=== PATIENT | female | born 2000 | race Caucasian/White ===

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

== ENCOUNTER → 2018-01-13 11:12 | Outpatient (CLI) | payer OTHER, SELFPAY ==
[2018-01-13 13:53] LABS: HCG Qualitative, Serum Positive (Negative)
[2018-01-13 14:29] LABS: HCG,Quantitative 45971 mIU/mL
== END ==
PROVIDERS: PCP Nurse Practitioner Family; Visit Provider Nurse Practitioner Family
DX: Z32.00 Encounter for pregnancy test, result unknown (principal)
CPT/HCPCS: 36415; 84702; 84703

== ENCOUNTER 2021-06-06 12:16 | Emergency (ER) | payer OTHER, SELFPAY ==
--- NOTE | 2021-06-06 15:37 | HMH.EDUTC ---
[facility] [place] Clinical Impression: UTI (urinary tract infection) Qualifiers: Urinary tract infection type: site unspecified Hematuria presence: with hematuria Qualified Code(s): N39.0 - Urinary tract infection, site not specified Disposition: Home, Self-Care Condition on Discharge: Good Instructions: Urinary Tract Infection Additional Instructions: Drink plenty of fluids. Take tylenol or ibuprofen for pain or fever. Take the medications as directed. Follow up with your regular doctor. GO TO THE ER FOR ANY WORSENING SYMPTOMS The pyridium will make your urine turn orange, this is an expected side effect. It will stain your clothes if it comes into contact with them. Prescriptions: Ondansetron [Zofran 4mg ODT] 4 mg PO Q8HP PRN #20 tab PRN Reason: Nausea Transmission Status: Received by [email or web address] Sulfamethoxazole/Trimethoprim [Bactrim DS tablet] 1 each PO BID 7 Days #14 tab Transmission Status: Received by [email or web address] Phenazopyridine HCl [Pyridium 200mg Tablet] 200 pow PO TID #6 tab Transmission Status: Received by [email or web address] Referrals: Provider,ReferralMD [Primary Care Provider] - Time of Disposition: 16:26 Medical Decision Making - Medical Records Medical records reviewed: No: I reviewed the patient's medical records. - Jamey Inquiry Pt receiving controlled substance: No Vital Signs: 06/06/21 15:46 06/06/21 16:41 Temperature 98.3 F 98.3 F Temperature Source Oral Pulse Rate 72 Pulse Rate [Left] 72 Respiratory Rate 18 18 Blood Pressure 107/74 L Blood Pressure [Right Arm] 107/74 L Blood Pressure Mean [Right Arm] 85 02 Sat by Pulse Oximetry 97 - Lab Data Lab results reviewed: Yes: I reviewed the patient's lab results. Lab Results 06/06/21 15:55: Urine Color Yellow, Urine Appearance Cloudy, Urine pH 7.0, Ur Specific [place] 1.020, Urine Protein Negative, Urine Glucose (UA) Negative, Urine Ketones Negative, Urine Blood 2+, Urine Nitrate Positive A, Urine Bilirubin Negative, Urine Urobilinogen 0.2, Ur Leukocyte Esterase 1+ A Orders (Tests/Meds): ORDERS Category Date Time Status Urine Culture Stat Micro 06/06/21 15:55 Results [facility] [place] HPI - General Stated complaint: possible uti Time Seen by Provider: 06/06/21 15:37 - History of Present Illness Provider Complaint: She states that for the past 2 days she has had low back pain and dysuria. - Related Data Previous Rx's Medication Instructions Recorded Methocarbamol [Robaxin 500mg Tab] 500 mg PO BIDP PRN #30 tab 01/06/19 methylPREDNISolone [Medrol] 4 mg PO DIRECTED 6 Days #21 01/06/19 tab.ds.pk Ondansetron [Zofran 4mg ODT] 4 mg PO Q8HP PRN #20 tab 06/06/21 Phenazopyridine HCl [Pyridium 200 pow PO TID #6 tab 06/06/21 200mg Tablet] Sulfamethoxazole/Trimethoprim 1 each PO BID 7 Days #14 tab 06/06/21 [Bactrim DS tablet] Allergies Allergy/AdvReac Type Severity Reaction Status Date / Time No Known Allergies Allergy Verified 06/18/17 20:02 [facility] History - Hepatitis A Screen Attestation statement:: This patient has been screened for Hepatitis A risk factors. I have reviewed the patient's past medical history: Yes Laterality Cases: Bilateral: Tonsillectomy - Social History Alcohol Intake: never Occupational Status: other ROS Obtained: Yes All systems reviewed & no additional complaints - Constitutional Constitutional: Reports as per HPI - Eyes Eyes: Denies eye discharge - ENT Ears, Nose, Mouth, and Throat: Denies dizziness, Denies otalgia, Denies sore throat - Cardiovascular Cardiovascular: Denies chest pain - Respiratory Respiratory: Denies chest congestion, Denies cough - Genitourinary Female Genitourinary: Reports as per HPI - Musculoskeletal Musculoskeletal: Reports back pain - Integumentary/Breasts Skin/Breast: Denies rash Physical Exam - General General appearance: alert, in no apparent distres
[2021-06-06 15:46] VITALS: BP 107/74; PULSE 72; RESP 18; TEMP 36.8; O2SAT 97; BMI 26.7
[2021-06-06 16:08] LABS: Apearance,Urine Cloudy (Clear); Color,Urine Yellow (Yellow)
[2021-06-06 16:09] LABS: Bilirubin,Urine Negative (Negative); Blood, Urine 2+ (Negative); Glucose,Urine (UA) Negative (Negative); Ketones,Urine Negative (Negative); Protein,Urine Negative (Negative); UTC Leukocyte Esterase,Urine 1+ (Negative); UTC Nitrate,Urine Positive (Negative); Urobilinogen,Urine 0.2 EU/dl (0.2)
[2021-06-06 16:41] VITALS: BP 107/74; PULSE 72; RESP 18; TEMP 36.8
== END 2021-06-06 16:47 | disposition home or self-care (01) ==
PROVIDERS: Emergency Provider Nurse Practitioner Family
DX: N39.0 Urinary tract infection, site not specified (principal)
CPT/HCPCS: 81003; 87086; 87088; 87186; 99202; G0463

== ENCOUNTER → 2022-09-25 16:12 | Outpatient (CLI) | payer OTHER, SELFPAY ==
[2022-09-25 16:45] LABS: Basophils % 0.2 % (0.1-2.0); Eosinophils # 0.1 K/mm3 (0.0-0.4); Eosinophils % 0.4 % (0.1-12.0); Hematocrit 37.3 % (37.0-47.0); Hemoglobin 12.6 g/dL (12.2-16.2); Lymphocytes # 1.8 K/mm3 (0.7-4.5); Lymphocytes % 14.1 % (10-50); Mean Corpuscular HGB Conc 33.9 g/dL (31.8-35.4); Mean Corpuscular Hemoglobin 29.8 pg (27.0-31.2); Mean Corpuscular Volume 87.8 fl (81-99); Mean Platelet Volume 9.1 fl (7.4-10.4); Monocytes # 0.4 K/mm3 (0.1-1.0); Monocytes % 3.1 % (1.7-9.3); Neutrophils # 10.8 K/mm3 (1.8-7.8); Neutrophils % 82.3 % (37.0-80.0); Platelet Count 228 K/mm3 (142-424); Red Blood Count 4.25 M/mm3 (4.20-5.40); White Blood Count 13.1 K/mm3 (4.8-10.8)
[2022-09-27 08:19] LABS: Rubella Antibodies, IgG 6.61 index (Immune >0.99)
[2022-09-27 12:30] LABS: HIV Screen 4th Generation wRfx Non Reactive (Non Reactive); Rapid Plasma Reagin Ab Titer Non Reactive (NonRea<1:1)
[2022-10-05 20:40] LABS: Hepatitis B Surface Antigen Negative
[2022-10-05 20:41] LABS: Hepatitis C Antibody Non Reactive
== END ==
PROVIDERS: Visit Provider Obstetrics & Gynecology
DX: Z34.90 Encounter for supervision of normal pregnancy, unspecified, unspecified trimester (principal)
CPT/HCPCS: 36415; 85025; 86593; 86703; 86762; 86850; 87086; 87340; 87380; G0432

== ENCOUNTER → 2022-12-18 13:09 | Outpatient (CLI) | payer OTHER, SELFPAY ==
--- NOTE | 2022-12-18 13:12 | US_ITS ---
PROCEDURE: US OB /MATERNAL DETAIL CLINICAL INDICATION: 20 week anatomy scan COMPARISON: No exams were available for comparison FINDINGS: Transabdominal sonographic images of the uterus were obtained. From her last menstrual period she is 20 weeks 4 days Single viable intrauterine gestation. Breech position. Placenta: Anteriorplacenta grade 1. There are several placental lakes. There is average amount fluid. The cervix appears satisfactory. Closed and measuring 3.5 cm in length. Complete survey performed and was unremarkable on the submitted images as in PACS. No discrete anomalies identified on survey imaging by technologist. Active fetus. Three-vessel cord with satisfactory umbilical cord insertion. 4- chamber heart noted. LVOT, RVOT, aortic arch appear normal. Survey of brain & ventricles Unremarkable.Cerebellum, thalamus, choroid plexus, cisterna magna appear normal. Face and neck survey unremarkable. Lips, nose, profile, nasion appear normal. Diaphragm and chest views unremarkable. Abdomen: Both kidneys noted and unremarkable. Stomach, bladder noted and satisfactory. Spine: Survey of the spine satisfactory with no anomalies identified nor imaged. Upper, thoracic and lower spine appear normal. Both arms and legs noted. Amniotic Fluid: Adequate. Measurements: Average ultrasound age 19weeks 2days. Estimated due date by ultrasound age 1205/12/2023. Estimated weight 297g BPD = 18weeks 5days OFD = 20weeks 1day HC = 18weeks 6days AC = 19weeks 6days FL = 19weeks 4days Growth Percentile= 6 Heart Rate = 144bpm Cerebellum = 19weeks 4days Humerus = 19weeks 4days HC/AC is 1.1 CI is 0.71 FL/BPD is 0.74 FL/AC is 0.21 IMPRESSION: 1. Viable fetus in the breech presentation with an anterior placenta grade 1. 2. The anatomical scan appears normal. 3. The growth is 6 percentile and the baby is globally 9 days behind on dates. Dictated by: Christiano Gómez MD 12/19/2022 08:32 Chrsitiano Gómez MD in [place] 12/19/2022 08:32
== END ==
PROVIDERS: PCP Obstetrics & Gynecology; Visit Provider Obstetrics & Gynecology
DX: Z34.92 Encounter for supervision of normal pregnancy, unspecified, second trimester (principal); Z3A.20 20 weeks gestation of pregnancy
CPT/HCPCS: 76811

== ENCOUNTER → 2023-02-05 11:35 | Outpatient (CLI) | payer OTHER, SELFPAY ==
[2023-02-05 12:23] LABS: Glucose,Fasting 90 mg/dl (74-100)
[2023-02-05 12:26] LABS: Eosinophils # 0.1 K/mm3 (0.0-0.4); Eosinophils % 0.6 % (0.1-12.0); Hematocrit 34.7 % (37.0-47.0); Hemoglobin 11.3 g/dL (12.2-16.2); Lymphocytes # 1.6 K/mm3 (0.7-4.5); Lymphocytes % 15.1 % (10-50); Mean Corpuscular HGB Conc 32.7 g/dL (31.8-35.4); Mean Corpuscular Hemoglobin 29.1 pg (27.0-31.2); Mean Corpuscular Volume 88.8 fl (81-99); Mean Platelet Volume 9.7 fl (7.4-10.4); Monocytes # 0.4 K/mm3 (0.1-1.0); Monocytes % 3.6 % (1.7-9.3); Neutrophils # 8.6 K/mm3 (1.8-7.8); Neutrophils % 80.7 % (37.0-80.0); Platelet Count 172 K/mm3 (142-424); Red Blood Count 3.91 M/mm3 (4.20-5.40); White Blood Count 10.6 K/mm3 (4.8-10.8)
[2023-02-05 14:08] LABS: Glucose 1 Hour 134 mg/dL (74-100)
== END ==
PROVIDERS: PCP Obstetrics & Gynecology; Visit Provider Obstetrics & Gynecology
DX: Z34.92 Encounter for supervision of normal pregnancy, unspecified, second trimester (principal); Z3A.27 27 weeks gestation of pregnancy
CPT/HCPCS: 36415; 82951; 85025

== ENCOUNTER → 2023-04-09 23:15 | Outpatient (CLI) | payer OTHER, SELFPAY | PROVIDERS: PCP Obstetrics & Gynecology; Visit Provider Obstetrics & Gynecology | DX: Z34.93 Encounter for supervision of normal pregnancy, unspecified, third trimester (principal); Z3A.36 36 weeks gestation of pregnancy | CPT/HCPCS: 86403 ==

== ENCOUNTER 2023-04-28 06:45 | Inpatient (IN) | payer OTHER, SELFPAY ==
[2023-04-28 07:24] VITALS: BMI 29.9
[2023-04-28 08:18] LABS: Basophils % 0.2 % (0.1-2.0); Eosinophils # 0.1 K/mm3 (0.0-0.4); Eosinophils % 1.3 % (0.1-12.0); Hematocrit 30.8 % (37.0-47.0); Hemoglobin 10.7 g/dL (12.2-16.2); Lymphocytes # 1.7 K/mm3 (0.7-4.5); Lymphocytes % 22.7 % (10-50); Mean Corpuscular HGB Conc 34.7 g/dL (31.8-35.4); Mean Corpuscular Hemoglobin 30.7 pg (27.0-31.2); Mean Corpuscular Volume 88.4 fl (81-99); Mean Platelet Volume 10.4 fl (7.4-10.4); Monocytes # 0.5 K/mm3 (0.1-1.0); Neutrophils # 5.3 K/mm3 (1.8-7.8); Neutrophils % 69.8 % (37.0-80.0); Platelet Count 171 K/mm3 (142-424); Red Blood Count 3.49 M/mm3 (4.20-5.40); Red Cell Distribution Width 14.2 % (11.5-17.5); White Blood Count 7.6 K/mm3 (4.8-10.8)
[2023-04-28 09:03] VITALS: BP 122/73; PULSE 96; RESP 18; TEMP 36.6; O2SAT 100; BMI 29.9
--- NOTE | 2023-04-28 10:14 | EXP.OB.APHP ---
OB - H&P: HPI Antepartum History of Present Illness Chief complaint: Elective induction of labor History of present illness: Ms Janie Georges is a 22 yo at 39w0d who presents to [facility] L&D for scheduled elective induction of labor. She admits to contractions and pelvic pressure. Baby is active. She has had good care. History of Present Criteria for establishing EDC:: based on 1st trimester US only care: good care Ultrasounds: normal mid trimester US Obstetrical complications: none Medical complications: none Labs Blood type: B (+) positive Rubella: immune RPR/VDRL: nonreactive GBS status: negative HBsAG: negative [facility] Disclaimer: The information contained in this section may have been updated after the patient was seen, as this information can be updated by other users. Medical History (Updated 04/28/23 @ 10:19 by Argelia Hollins DO) 39 weeks gestation of Asymmetric intrauterine growth restriction (IUGR) Encounter for elective induction of labor Nausea and vomiting during Request for sterilization Surgical History History of tonsillectomy Family History Other No significant family history Social History Smoking Status: Never smoker alcohol intake: never current occupational status: employed Travel in the last 8 weeks: None Review of Systems Review of Systems Review of systems:: pertinent systems reviewed and negative unless documented below *Genitourinary Comments: + contractions and pelvic pressure Meds Home Medications and Allergies Home Medications Medication Instructions Recorded Confirmed Type aspirin 81 mg chewable tablet 81 mg PO DAILY 04/28/23 04/28/23 History [id number]-[id number]-[id number]-[id number] 1 mg 1 tab PO DAILY 04/28/23 04/28/23 History tablet New Prescriptions to Start Prescriptions: Allergies Allergy/AdvReac Type Severity Reaction Status Date / Time No Known Allergies Allergy Verified 04/23/23 12:57 OB - H&P: Exam Physical Exam Vital signs: Temp Pulse Resp BP Pulse Ox O2 Del Method 97.9 F 96 H 18 122/73 100 Room Air 04/28/23 09:03 04/28/23 09:03 04/28/23 09:03 04/28/23 09:03 04/28/23 09:03 04/28/23 09:03 Constitutional no acute distress and cooperative Routine HEENT Exam Head: Present normocephalic and atraumatic Eye: Absent conjunctivae pink ENT: Present mucous membranes moist Routine Neck Exam Present full ROM Routine Respiratory Exam Present CTA bilaterally and normal respiratory effort Routine Cardiovascular Exam Present RRR Routine Abdominal Exam Present soft (Gravid); Absent tenderness Routine Rectal Exam Patient deferred: visual exam Routine Exam External: Present normal urethra appearance; Absent erythema, tenderness, lesions, lacerations, vulvar erythema or vulvar tenderness Routine Extremities Exam Present edema (+1 bilateral lower extremity edema) and full ROM; Absent calf tenderness Routine Neurological Exam Present alert, oriented X3 and moving all extremities Routine Psychiatric Exam Present normal affect and cooperative Detailed Labor and Delivery Exam Dilation (cm): 3 Effacement (%): 60 Cervix position: mid station: -2 Consistency: soft Membranes: artificially ruptured Amniotic fluid: clear Baseline heart rate: 150 monitor accelerations: Present monitor decelerations: None assisted variability: Moderate (11-25) Contraction frequency (min): 4 OB - Results Labs Labs: Short CBC 04/28/23 Range/Units 07:53 WBC 7.6 (4.8-10.8) K/mm3 Hgb 10.7 L (12.2-16.2) g/dL Hct 30.8 L (37.0-47.0) % Plt Count 171 (142-424) K/mm3 OB - A/P Antepartum (1) 39 weeks gestation of : Status: Acute (2) Encounter for elective inductio
--- NOTE | 2023-04-28 12:42 | P.PNANES_ITS ---
[facility] Disclaimer: The information contained in this section may have been updated after the patient was seen, as this information can be updated by other users. Medical History (Updated 04/28/23 @ 10:19 by Argelia Hollins DO) 39 weeks gestation of Asymmetric intrauterine growth restriction (IUGR) Encounter for elective induction of labor Nausea and vomiting during Request for sterilization Surgical History History of tonsillectomy Family History Other No significant family history Social History Smoking Status: Never smoker alcohol intake: never substance use type: denies use current occupational status: employed Travel in the last 8 weeks: None [facility] Anesthesia Checklist Patient Identification Patient Identification: Arm Band, Family and Verbal (Name & ) Structural Data Admitted From: Inpatient (OB 277) Planned Operative Procedure/s: Labor epidural Consent for Planned Operative Procedure(s) Verified: Yes Verified Documents: Surgical Consent and History and Physical NPO Status Verified Time NPO: 06:00 Chart Verification Results Verified: CBC Additional verifications Patient : Yes (39 0/7 week IUP for induction of labor) Anesthesia Reactions: No Cardiovascular Assessment Heart Sounds: S1 & S2 Pulse Rhythm: Irregular Peripheral Edema: Yes (2+ AYAAN LE) Airway Assessment Mallampati Score:: Class II C-Spine Mobility Assessed: Yes (FROM) TMJ Mobility Assessed: Yes Dentition: Good Dentition (Nothing loose per pt.) Neurological Assessment Level of Consciousness: Awake, Alert, Appropriate, Follows Commands and Restless Hx Seizures: No Numbness or tingling in extremities: No Anesthesia Plan Anesthesia Risk discussed: Yes Anesthesia Plan: Verified ASA Class: II Anesthesia Type: Epidural
[2023-04-28 16:48] LABS: Appearance,Urine CLEAR (Clear); Blood, Urine Negative (Negative); Color,Urine YELLOW (Yellow); Glucose,Urine (UA) TRACE (Negative); Ketones,Urine 1+ (Negative); Leukocyte Esterase,Urine TRACE (Negative); Microscopic, Urine URINE MICROSCOPIC (MICROSCOPIC); Nitrate,Urine Negative (Negative); Protein,Urine TRACE (Negative); Specific Gravity, Urine >= 1.030 (1.005-1.030)
[2023-04-28 16:50] LABS: Bilirubin,Urine 1+ (Negative)
[2023-04-28 17:00] LABS: Benzodiazepines Screen,Urine Negative ng/ml (<200)
[2023-04-28 17:01] LABS: Amphetamine/Metha Screen,Urine Negative ng/ml (<1000)
[2023-04-28 17:02] LABS: Barbiturates Screen,Urine Negative ng/ml (<200); Cannabinoid Screen,Urine Negative ng/ml (<50)
[2023-04-28 17:03] LABS: Cocaine Screen,Urine Negative ng/ml (<300); Methadone Screen,Urine Negative ng/ml (<300)
[2023-04-28 17:04] LABS: Opiate Screen,Urine Negative ng/ml (<300)
[2023-04-28 17:05] LABS: Phencyclidine Screen,Urine Negative ng/ml (<25)
[2023-04-28 17:31] LABS: WBC,Urine Occasional #/hpf (0-3)
--- NOTE | 2023-04-28 18:23 | EXP.DN ---
Delivery Note Delivery Date:: 04/28/23 Delivery Time:: 18:13 Anesthesia Type: Epidural Was labor medically induced?: No Induction method: none Gestational age (weeks): 39 Infant delivered prior to 39 weeks?: No Gender: Female at 1 minute: 9 at 5 minutes: 9 Delivery Procedure:: Mom complete with epidural. Pushed for approximately one contraction. Head delivered spontaneously over intact perineum in BAILEE position. No nuchal cord. Anterior shoulder delivered with gentle downward pressure. Posterior shoulder and remainder of body delivered spontaneously. Baby placed on maternal abdomen, mouth and nares bulb suctioned, warmed/dried and stimulated. Delayed cord clamping was performed for 60 seconds. Cord was clamped and cut by father of baby. Cord blood was obtained. Placenta delivered spontaneously and intact. No lacerations. Mom and baby were skin to skin and doing well after delivery. Live female baby (baby's name is Maggie) APGARs 9 (1 min), 9 (5 min) EBL 25 mL Placental Delivery Description: Spontaneous
[2023-04-29 06:20] LABS: Basophils % 0.1 % (0.1-2.0); Eosinophils # 0.1 K/mm3 (0.0-0.4); Eosinophils % 0.9 % (0.1-12.0); Hematocrit 28.3 % (37.0-47.0); Hemoglobin 9.9 g/dL (12.2-16.2); Lymphocytes # 1.7 K/mm3 (0.7-4.5); Lymphocytes % 21.7 % (10-50); Mean Corpuscular HGB Conc 35.1 g/dL (31.8-35.4); Mean Corpuscular Hemoglobin 30.6 pg (27.0-31.2); Mean Corpuscular Volume 87.2 fl (81-99); Monocytes # 0.4 K/mm3 (0.1-1.0); Monocytes % 5.7 % (1.7-9.3); Neutrophils # 5.5 K/mm3 (1.8-7.8); Neutrophils % 71.5 % (37.0-80.0); Platelet Count 144 K/mm3 (142-424); Red Blood Count 3.24 M/mm3 (4.20-5.40); Red Cell Distribution Width 14.1 % (11.5-17.5); White Blood Count 7.7 K/mm3 (4.8-10.8)
--- NOTE | 2023-04-29 14:06 | EXP.DC.SUM ---
General Admission date:: 04/28/23 Discharge date: 04/29/23 HPI HPI HPI: PPD # 1 s/p She is doing well. Formula feeding. Lochia is appropriate. Voiding without difficulty and passing flatus. Tolerating regular diet. Denies fever/chills, chest pain and shortness of breath. No headaches, vision changes, lightheadedness/dizziness. Ambulating well ad marco antonio. Hospital Course Hospital Course Hospital Course: Ms Janie Georges is a 22 yo at 39w0d admitted to [facility] L&D for scheduled elective induction of labor. She had good care. She underwent induction of labor with Pitocin. She had a normal spontaneous vaginal delivery on 04/28/23 at 1813. She delivered a live female baby, Maggie, weighing 7 lb 6 oz. AGPARs 9 (1 min), 9 (5 min). EBL 25 mL. She did well . Breast feeding. Lochia is appropriate. Voiding without difficulty and passing flatus. Tolerating regular diet. Denies fever/chills, chest pain and shortness of breath. No headaches, vision changes, lightheadedness/dizziness. Ambulating well ad marco antonio. She received Venofer 200 mg IV x 1 dose . She was discharged home on PPD #1 doing well with instructions to follow-up in the office in 2 weeks. Exam Data for Last 24 hours Vital signs and Labs for Last 24 Hours: Temp Pulse Resp BP Pulse Ox O2 Del Method 97.9 F 96 H 18 122/73 100 Room Air 04/28/23 09:03 04/28/23 09:03 04/28/23 09:03 04/28/23 09:03 04/28/23 09:03 04/28/23 09:03 Laboratory Results - last 24 hr 04/28/23 16:17: Urine Color Yellow, Urine Appearance Clear, Urine pH 6.0, Ur Specific [place] >= 1.030, Urine Protein Trace, Urine Glucose (UA) Trace, Urine Ketones 1+, Urine Blood Negative, Urine Nitrate Negative, Urine Bilirubin 1+ A, Urine Urobilinogen 4.0, Ur Leukocyte Esterase Trace, Urine RBC None, Urine WBC Occasional, Ur Squamous Epith Cells 5-10, Urine Bacteria None 04/28/23 16:39: Urine Opiates Screen Negative, Urine Methadone Screen Negative, Ur Barbituates Screen Negative, Ur Phencyclidine Scrn Negative, Ur Amphetamines Screen Negative, U Benzodiazepines Scrn Negative, Urine Cocaine Screen Negative, U Marijuana (THC) Screen Negative 04/29/23 05:31: WBC 7.7, RBC 3.24 L, Hgb 9.9 L, Hct 28.3 L, MCV 87.2, MCH 30.6, MCHC 35.1, RDW 14.1, Plt Count 144, MPV 11.0 H, Neut % (Auto) 71.5, Lymph % (Auto) 21.7, [place] % (Auto) 5.7, Eos % (Auto) 0.9, Baso % (Auto) 0.1, Neut # (Auto) 5.5, Lymph # (Auto) 1.7, [place] # (Auto) 0.4, Eos # (Auto) 0.1, Baso # (Auto) 0.0 I & O for Last 24 hours: Intake & Output 04/26/23 04/27/23 04/28/23 04/29/23 23:59 23:59 23:59 23:59 Weight 191 lb Constitutional Constitutional: no acute distress and cooperative *Routine HEENT Exam Head: Present normocephalic and atraumatic Eye: Absent conjunctivae pink ENT: Present mucous membranes moist *Routine Neck Exam Neck: Present full ROM *Routine Respiratory Exam Respiratory: Present CTA bilaterally and normal respiratory effort *Routine Cardiovascular Exam Cardiovascular: Present RRR *Routine Abdominal Exam Abdominal: Present soft; Absent tenderness, distended or guarding Comments: Uterine fundus firm and below umbilicus *Routine Rectal Exam Patient deferred: visual exam *Routine Exam Patient deferred: external exam *Routine Extremities Exam Extremities: Present full ROM; Absent edema or calf tenderness *Routine Neurological Exam Neurological: Present alert, oriented X3 and moving all extremities Routine Psychiatric Exam Psychiatric: Present normal affect and cooperative Results Data Completed and Pending Labs on day of discharge: Labs from last 24 hours 04/29/23 04/28/23 04/28/23 05:31 16:39 16:17 WBC 7.7 RBC 3.24 L Hgb 9.9 L Hct 28.3 L MCV 87.2 MCH 30.6 MCHC 35.1 RDW 14.1 Plt Count 144 MPV 11.0 H Neut % (Auto) 71.5 Lymph % (Auto) 21.7 [place] % (Auto) 5.7 Eos % (Auto) 0.9 Baso % (Auto) 0.1 Neut # (Auto) 5.5 Lymph # (Auto)
== END 2023-04-29 22:23 | disposition home or self-care (01) | DRG 806 ==
PROVIDERS: Admitting Provider Obstetrics & Gynecology; PCP Obstetrics & Gynecology; Visit Provider Obstetrics & Gynecology
DX: O90.81 Anemia of the puerperium (principal); D62 Acute posthemorrhagic anemia; Z37.0 Single live birth; Z3A.39 39 weeks gestation of pregnancy; Z23 Encounter for immunization
CPT/HCPCS: 59409; 36415; 59025; 80305; 81001; 85025; 86850; 94761; G0283; J1756

== ENCOUNTER 2023-05-03 13:34 | Outpatient (CLI) | payer OTHER, SELFPAY ==
[2023-05-03 13:43] VITALS: BMI 28.5
--- NOTE | 2023-05-03 13:48 | PC.NURSE ---
patient presents to unit with complaints of a headache since post 1 day of delivery. reports no vision changes or any other symptoms. Reports laying flat, medication or any other remedies do not help. pt reports a normal delivery and no issues with epidural placement. pt denies any history of bp issues with any other . poc explained and she v/u
[2023-05-03 13:53] LABS: Microscopic, Urine URINE MICROSCOPIC (MICROSCOPIC)
[2023-05-03 13:54] VITALS: BP 131/82; PULSE 69; RESP 18; TEMP 37; O2SAT 97
[2023-05-03 13:55] LABS: Appearance,Urine CLOUDY (Clear); Bilirubin,Urine Negative (Negative); Blood, Urine 3+ (Negative); Color,Urine YELLOW (Yellow); Glucose,Urine (UA) Negative (Negative); Ketones,Urine Negative (Negative); Leukocyte Esterase,Urine 2+ (Negative); Nitrate,Urine Negative (Negative); PH,Urine 6.5 (5.0-8.5); Protein,Urine Negative (Negative); Urobilinogen,Urine 0.2 EU/dl (0.2)
--- NOTE | 2023-05-03 13:55 | PC.NURSE ---
Dr. Marquez on unit- notified of patient.
--- NOTE | 2023-05-03 14:00 | PC.NURSE ---
dr yen at bedside.
--- NOTE | 2023-05-03 14:05 | PC.NURSE ---
dr yen gave orders for 1 dose of toradol 30mg im now and then can d/c home and f/u as [place]. r/v
[2023-05-03 14:06] LABS: Bacteria,Urine 1+ /lpf; RBC,Urine Occasional #/hpf (0-3)
[2023-05-03 14:07] LABS: Barbiturates Screen,Urine Negative ng/ml (<200)
[2023-05-03 14:08] LABS: Amphetamine/Metha Screen,Urine Negative ng/ml (<1000)
[2023-05-03 14:09] LABS: Cannabinoid Screen,Urine Negative ng/ml (<50); Methadone Screen,Urine Negative ng/ml (<300)
[2023-05-03 14:10] LABS: Cocaine Screen,Urine Negative ng/ml (<300)
[2023-05-03 14:11] LABS: Opiate Screen,Urine Negative ng/ml (<300); Phencyclidine Screen,Urine Negative ng/ml (<25)
[2023-05-03 14:14] VITALS: BP 131/82; PULSE 69; RESP 18; TEMP 37; O2SAT 97; BMI 28.5
[2023-05-03 14:16] LABS: Benzodiazepines Screen,Urine Negative ng/ml (<200)
== END 2023-05-03 15:00 | disposition home or self-care (01) ==
LOC: OBOUT 13:37 → OB 13:37
PROVIDERS: Visit Provider Obstetrics & Gynecology
DX: G43.809 Other migraine, not intractable, without status migrainosus (principal); G44.89 Other headache syndrome; B96.89 Other specified bacterial agents as the cause of diseases classified elsewhere
CPT/HCPCS: 80305; 81001; 87086; 96372; G0463

== ENCOUNTER 2023-11-25 16:14 | Outpatient (CLI) | payer OTHER, SELFPAY ==
--- NOTE | 2023-11-25 16:19 | XR_ITS ---
FINAL REPORT CLINICAL HISTORY: left knee pain,NKI FINDINGS: Left knee Three views were obtained. There is no acute fracture or dislocation. The joint spaces appear normal. No soft tissue abnormality is identified. IMPRESSION: No acute process. Reviewed, Interpreted and Dictated by Kieran Pereira III, MD Transcribed by Dang Kathleen Authenticated and [facility]
[2023-11-25 17:01] LABS: Basophils % 0.5 % (0.1-2.0); Eosinophils # 0.1 K/mm3 (0.0-0.4); Eosinophils % 1.1 % (0.1-12.0); Hematocrit 36.3 % (37.0-47.0); Hemoglobin 12.3 g/dL (12.2-16.2); Lymphocytes % 25.5 % (10-50); Mean Corpuscular HGB Conc 33.9 g/dL (31.8-35.4); Mean Corpuscular Hemoglobin 29.8 pg (27.0-31.2); Mean Corpuscular Volume 87.9 fl (81-99); Mean Platelet Volume 9.1 fl (7.4-10.4); Monocytes # 0.4 K/mm3 (0.1-1.0); Neutrophils # 5.2 K/mm3 (1.8-7.8); Neutrophils % 67.9 % (37.0-80.0); Platelet Count 242 K/mm3 (142-424); Red Blood Count 4.13 M/mm3 (4.20-5.40); Red Cell Distribution Width 13.5 % (11.5-17.5); White Blood Count 7.7 K/mm3 (4.8-10.8)
[2023-11-25 17:45] LABS: Alanine Aminotransferase 27 U/L (12-78); Albumin Level 4.7 g/dl (3.5-5.0); Albumin/Globulin Ratio 1.4 (1.1-1.8); Alkaline Phosphatase 70 U/L (38-126); Aspartate Amino Transferase 28 U/L (14-36); Bilirubin,Total 0.9 mg/dl (0.2-1.3); Blood Urea Nitrogen 13 mg/dl (7-17); Carbon Dioxide 27 mmol/L (22.0-30.0); Chloride 105 mmol/L (98-107); Estimated Glomerular Filt Rate 123 ml/min (>60); GFR (African American) 149 ML/MIN (>60); Globulin 3.4 g/dL (1.3-3.2); Glucose 100 mg/dl (74-100); Sodium 140 mmol/L (136-145); Total Protein,Serum 8.1 g/dl (6.3-8.2)
[2023-11-25 17:51] LABS: C-Reactive Protein 12.4 mg/L (0-4)
[2023-11-25 17:52] LABS: Hemoglobin A1C 4.8 % (4.0-6.0)
[2023-11-25 18:07] LABS: Erythrocyte Sedimentation Rate 33 mm/hr (0-20)
[2023-11-25 18:25] LABS: Thyroid Stimulating Hormone 1.78 uIU/mL (0.465-4.68)
[2023-11-25 18:44] LABS: Vitamin B12 462 pg/mL (239-931)
[2023-11-25 18:59] LABS: Iron 64 ug/dL (37-170)
[2023-11-25 19:08] LABS: Total Iron Binding Capacity 336 ug/dL (265-497)
[2024-01-05 11:56] LABS: Antinuclear Antibodies (ANA) Negative
== END 2023-11-25 23:59 | disposition home or self-care (01) ==
LOC: LAB 16:15
PROVIDERS: PCP Nurse Practitioner Family; Visit Provider Nurse Practitioner Family
DX: M25.50 Pain in unspecified joint (principal)
CPT/HCPCS: 36415; 73562; 80050; 80053; 82607; 83036; 83540; 83550; 84443; 85025; 85651; 86038; 86140

== ENCOUNTER 2023-12-08 13:59 | Emergency (ER) | payer OTHER, SELFPAY ==
[2023-12-08 14:01] VITALS: BP 117/70; PULSE 80; RESP 17; TEMP 36.6; O2SAT 100; BMI 24.2
--- NOTE | 2023-12-08 15:57 | ED_ITS ---
<Statement entered by Brannon Ramos MD - 12/08/23 23:22> I was consulted by the KRYSTAL, and we discussed the complexity of the problems being addressed. I approved the treatment and management plan for this patient's care in the emergency department, thus performing a substantive portion of the medical decision making. Brannon Ramos MD, DANIKA, FACEP Discharge Plan Disposition Patient Disposition: Home, Self-Care Condition: Good Prescriptions Prescriptions: No Action prednisone 20 mg tablet 40 mg PO DAILY 5 Days Qty: 10 0RF Referrals Follow up/Referrals: Rylan Alfaro DO [Staff Physician] - See instructions (Left knee joint effusion) Abelardo Mcdowell MD [Primary Care Provider] - See instructions Activity Restrictions/Add. Instructions Additional Instructions/Restrictions: Please call in the morning to make your appointment with orthopedics. Return to the ER for any worsening signs or symptoms as needed. Clinical Impressions Clinical Impression: Effusion of knee joint, left Discharge ED Provider: Brannon Ramos General Adult HPI General Chief complaint: Extremity Injury, Lower Stated complaint: Pain/Swelling in L knee Time Seen by Provider: 12/08/23 15:57 Mode of Arrival: Ambulatory Source of Information: Patient Limitations: No Limitations Description of Symptoms (Recalled from ER Triage Doc. by RN): pt to the ED with left knee pain x 2 weeks. pt denies any injury. pt was seen at pcp and given a round of steroids and had a negative xray. pt called pcp today due to persistent pain after completing her steroids and was told to go to the ER. History of Present Illness HPI narrative: Patient presents for evaluation of persistent left knee pain. Patient has had knee pain for approximately 2 weeks that is unprovoked and without trauma. She saw her PCP initially who did basic lab work that showed her inflammatory markers were mildly elevated but the remainder of her hematologic labs were nonactionable. Plain film imaging did not show any bony processes. Patient's PCP started her on steroids however that did not help and she reports that it is very difficult to bear weight due to the pain. She has no fever chills hemoptysis hematochezia melena nausea vomiting diarrhea.. Related Data Previous Rx's Medication Instructions Recorded prednisone 20 mg tablet 40 mg (2 x 20 mg) PO DAILY 5 days 11/27/23 #10 tabs Allergies Allergy/AdvReac Type Severity Reaction Status Date / Time No Known Allergies Allergy Verified 11/24/23 15:53 [facility] Disclaimer: The information contained in this section may have been updated after the patient was seen, as this information can be updated by other users. Medical History depression Status post normal vaginal delivery Acute blood loss anemia Encounter for elective induction of labor 39 weeks gestation of Asymmetric intrauterine growth restriction (IUGR) Request for sterilization Nausea and vomiting during Surgical History History of tonsillectomy Family History Other No significant family history Social History Smoking Status: Never smoker alcohol intake: never substance use type: denies use current occupational status: employed Travel in the last 8 weeks: None do you feel safe at home: Yes victim of physical abuse: No victim of emotional abuse: No victim of sexual abuse: No ROS Obtained: Yes Systems reviewed as appropriate & no additional complaints except as documented Physical Exam General General appearance: alert and in no apparent distress Eye Eye exam: Present normal appearance ENT ENT exam: Present normal exam Neck Neck exam: Present normal inspection Respiratory Respiratory exam: Present normal lung sounds bilaterally Cardiovascular Cardiovascular exam: Present regular rate and normal rhythm Expanded Lower Extremity Exam Left: Knee exam: Present tenderness, swelling, effusion and knee extension intact; Absent full ROM, ecchymosis, deformity, crepitus, erythema, anterior drawer sign or posterior draw sign Neurological Exam Neurological exam: Present alert and oriented X3 Skin Skin exam: Present warm, dry, intact and normal color Medical Decision Making Medical Records Medical records reviewed: Yes I reviewed the patient's medical records. Jamey Inquiry Pt receiving controlled substance: No Vital Signs: 12/08/23 14:01 Temperature 97.8 F Temperature Source Oral Pulse Rate [Left Radial] 80 Respiratory Rate 17 Blood Pressure [Right Arm] 117/70 Blood Pressure Mean [Right Arm] 85 Blood Pressure Source [Right Arm] Automatic Cuff Blood Pressure Position [Right Arm] Sitting 02 Sat by Pulse Oximetry 100 Oxygen Delivery Method Room Air Lab Data Lab results reviewed: Yes I reviewed the patient's lab results. Medical Decision Narrative: In summary patient is a 22-year-old female who presents to the emergency department for evaluation of left knee pain. Patient is hemodynamically stable upon arrival, afebrile. Physical exam is remarkable for joint effusion of the left knee without evidence of erythema induration increased temperature crepitus bony deformity on palpation. Differential diagnosis includes joint effusion versus internal derangement of the joint although she has no recent or remote history of trauma to her knee. 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 Given that I had interactive discussion with Dr. Alfaro who is agreed to see the patient in his office tomorrow therefore patient is appropriate for discharge with follow-up with orthopedics in the morning. Critical Care Critical Care Time Critical Care Time: No
[2023-12-08 16:35] VITALS: BP 121/80; PULSE 84; RESP 20; TEMP 36.7; O2SAT 98
== END 2023-12-08 16:35 | disposition home or self-care (01) ==
PROVIDERS: Emergency Provider Student in an Organized Health Care Education/Training Program; PCP Family Medicine
DX: M25.462 Effusion, left knee (principal); M25.562 Pain in left knee
CPT/HCPCS: 99283

== ENCOUNTER 2023-12-17 13:00 | Outpatient (CLI) | payer OTHER, SELFPAY ==
[2023-12-18 10:04] LABS: Appearance,Body Fld. CLOUDY; Source, Body Fld. SYNOVIAL FLUID
[2023-12-18 10:05] LABS: RBC,Body Fluid 118 cells/uL (< 10 X 10^3); TNC,Body Fluid 5635 cells/uL (< 1000)
[2023-12-22 11:17] LABS: Miscellaneous Test SCANNED IMAGE
== END 2023-12-17 23:59 | disposition home or self-care (01) ==
LOC: LAB.DROPOF 12-18 09:44
PROVIDERS: PCP Orthopaedic Surgery; Visit Provider Orthopaedic Surgery
DX: M25.462 Effusion, left knee (principal)
CPT/HCPCS: 89051

== ENCOUNTER 2024-02-20 12:42 | Outpatient (CLI) | payer OTHER, SELFPAY ==
[2024-02-20 14:34] LABS: Erythrocyte Sedimentation Rate 43 mm/hr (0-20)
[2024-02-21 10:12] LABS: RA Latex Turbid. <10.0 IU/mL (<14.0)
[2024-02-21 13:37] LABS: Anti-Cyclic Citrullinated Pept 6 units (0-19); Lyme Ab CIA Negative (Negative)
[2024-02-23 15:10] LABS: Antinuclear Antibodies, IFA Negative (.)
== END 2024-02-20 23:59 | disposition home or self-care (01) ==
LOC: LAB 12:43
PROVIDERS: PCP Nurse Practitioner Family; Visit Provider Physician Assistant
DX: M35.9 Systemic involvement of connective tissue, unspecified (principal)
CPT/HCPCS: 36415; 84550; 85651; 86038; 86200; 86431; 86618

== ENCOUNTER 2024-02-20 12:59 | Emergency (ER) | payer OTHER, SELFPAY ==
[2024-02-20 13:08] VITALS: BP 151/77; PULSE 92; RESP 16; TEMP 36.6; O2SAT 98; BMI 25.4
[2024-02-20 13:31] VITALS: BP 82/54; PULSE 102; O2SAT 98
[2024-02-20] MEDS: LIDOCAINE 5% TRANSDERMAL PATCH 1 EACH TP (13:41)
[2024-02-20] MEDS: KETOROLAC 30MG/ML VIAL 30 MG IM (13:41)
[2024-02-20] MEDS: ACETAMINOPHEN 500MG TAB 1000 MG PO (13:41)
--- NOTE | 2024-02-20 13:43 | XR_ITS ---
FINAL REPORT CLINICAL HISTORY: atraumatic pain/effusion COMPARISON: 11/25/2023 FINDINGS: LEFT KNEE 3 views of the left knee were obtained. There is no acute fracture or dislocation. There is [id number] narrowing of the lateral compartment joint space. A large joint effusion is new compared to the prior study. Soft tissues are unremarkable. IMPRESSION: New large joint effusion, etiology unclear. Reviewed, Interpreted and Dictated by Angel Mejia MD Transcribed by Adenike Kent Authenticated and [facility]
--- NOTE | 2024-02-20 13:52 | HMH.EDGENADL ---
Discharge Plan Disposition Patient Disposition: Home, Self-Care Prescriptions Prescriptions: No Action escitalopram oxalate 10 mg tablet 10 mg PO DAILY Qty: 30 2RF Referrals Follow up/Referrals: Toshia Rizzo APRN [Primary Care Provider] - See instructions Activity Restrictions/Add. Instructions Additional Instructions/Restrictions: You have been given a disc with images of your MRI synovial fluid studies have been sent we will call you with any significant abnormalities but please also follow-up with your primary care doctor and with rheumatology next week they should call you with an appointment early next week. Please return with any high fevers or other concerns. Clinical Impressions Clinical Impression: Effusion of left knee Print Language Print Language: Lao Discharge ED Provider: Dinorah Jordan General Adult HPI <Dinorah Jordan DO - Last Filed: 02/20/24 15:24> General Chief complaint: Extremity Problem,Nontraumatic Stated complaint: left knee swollen and painful, no acc Time Seen by Provider: 02/20/24 13:16 Mode of Arrival: Ambulatory Source of Information: Patient Limitations: No Limitations Description of Symptoms (Recalled from ER Triage Doc. by RN): pt c/o L knee pain that began about 2 mo. ago, however, it has gotten way worse the last 3d. pt states she is currently seeing Dr. Alfaro and has a referal to rheumatology. pt states there was no injury and that no one can figure out what is wrong with it. She states that Dr. Alfaro drained her knee and the fluid returned the next day. She has been on steroids without any relief. pt states the pain is worse with weight bearing and flexion. pt states the pain is throbbing and an 8/10. History of Present Illness HPI narrative: This patient is a 23-year-old female who has had a 2-month history of atraumatic left knee pain and effusion presenting to the emergency department for evaluation with concern for worsening pain and swelling. Patient initially was seen in the ED back in November for joint effusion and declined joint aspiration at that time. She was discharged to follow-up with orthopedics, which she did at the end of November. She had joint aspiration at that time, which was negative for septic arthritis or crystals. She also had a Lyme titer that was sent and was negative. She continued to follow-up with orthopedics and has had steroid injection in the knee as well as been sent home with a prescription for oral steroids. Despite this, her knee pain and swelling has continued to worsen to the point where now she is having trouble walking and bearing weight. She also states that she cannot go up or down steps secondary to the pain. She denies any new traumatic injury. No fevers, chills, redness, warmth, wounds, or skin changes at all. According to both the patient and medical record review, outpatient MRI has been ordered, however it has been declined by her insurance. She also has been referred to rheumatology as an outpatient but does not yet have an appointment scheduled. Patient is been trying Tylenol, IcyHot, and other [id number] supplements with no improvement. Related Data Previous Rx's ?Medication ?Instructions ?Recorded escitalopram oxalate 10 mg tablet 10 mg PO DAILY #30 tabs 02/02/24 Allergies Allergy/AdvReac Type Severity Reaction Status Date / Time No Known Allergies Allergy Verified 02/20/24 13:21 [facility] [place] <Dinorah Jordan DO - Last Filed: 02/20/24 15:24> [facility] [place] Disclaimer: The information contained in this section may have been updated after the patient was seen, as this information can be updated by other users. Medical History depression Status post normal vaginal delivery Acute blood loss anemia Encounter for elective induction of labor 39 weeks gestation of Asymmetric intrauterine growth restriction (IUGR) Request for sterilization Nausea and vomiting during Surgical History History of tonsillectomy Family History Other No significant family history Social History Smoking Status: Never smoker alcohol intake: never substance use type: denies use current occupational status: employed Travel in the last 8 weeks: None do you feel safe at home: Yes victim of physical abuse: No victim of emotional abuse: No victim of sexual abuse: No Other Medical History Have you received the Flu Vaccine for this season: No Have you received the Pneumonia Vaccine: No <Dinorah Jordan DO - Last Filed: 02/20/24 15:24> ROS Obtained: Yes All systems reviewed & no additional complaints except as documented Physical Exam <Dinorah Jordan DO - Last Filed: 02/20/24 15:24> General General appearance: alert and in no apparent distress Head Head exam: atraumatic and normocephalic Eye Eye exam: Present normal appearance, PERRL and EOMI ENT ENT exam: Present normal exam, normal oropharynx, mucous membranes moist and normal external ear exam Neck Neck exam: Present normal inspection, full ROM and trachea midline; Absent tenderness Chest Chest inspection: Present normal inspection and symmetric chest wall rise; Absent tenderness Respiratory Respiratory exam: Present normal lung sounds bilaterally; Absent respiratory distress, wheezes, stridor or accessory muscle use Cardiovascular Cardiovascular exam: Present regular rate and normal rhythm Abdominal Exam Abdominal exam: Present soft; Absent distention, tenderness or guarding Extremities Exam Extremities exam: Present tenderness, normal capillary refill, joint swelling and other (Very large left knee effusion with limited range of motion secondary to swelling and pain. No skin color changes such as erythema or warmth, no wounds. She is neurovascularly intact distally.); Absent full ROM Back Exam Back exam: Present normal inspection and full ROM; Absent tenderness Neurological Exam Neurological exam: Present alert, oriented X3 and CN II-XII intact; Absent motor sensory deficit Psychiatric Psychiatric exam: Present normal affect and normal mood Skin Skin exam: Present warm and dry Medical Decision Making <Dinorah Jordan DO - Last Filed: 02/20/24 15:24> Medical Records Medical records reviewed: Yes I reviewed the patient's medical records. Screening: Per USPSTF and CDC recommendations, given the prevalence of disease in our region, it is our hospital?s policy to screen for HIV and viral Hepatitis for all patients aged 18 and over and those with ongoing risk factors. Jamey Inquiry Pt receiving controlled substance: No Vital Signs: 02/20/24 13:08 02/20/24 13:31 02/20/24 14:31 Temperature 98 F Temperature Source Oral Pulse Rate 102 H 95 H Pulse Rate [Left] 92 H Respiratory Rate 16 Blood Pressure 82/54 L 109/66 L Blood Pressure [Right Arm] 151/77 H Blood Pressure Mean 63 73 Blood Pressure Mean [Right Arm] 101 Blood Pressure Source [Right Arm] Automatic Cuff Blood Pressure Position [Right Arm] Sitting 02 Sat by Pulse Oximetry 98 98 98 Oxygen Delivery Method Room Air Room Air Room Air Lab Data Lab results reviewed: Yes I reviewed the patient's lab results. Orders (Tests/Meds): ED MEDICATIONS Discontinued Medications Generic Name Dose Route Start Last Admin Trade Name Bossman PRN Reason Stop Dose Admin Acetaminophen 1,000 mg 02/20/24 13:24 02/20/24 13:41 Acetaminophen 500mg Tab PO 02/20/24 13:25 1,000 mg ONCE ONE Administration Ibuprofen 800 mg 02/20/24 13:24 Ibuprofen 400 Mg Tablet PO 02/20/24 13:25 ONCE ONE Ketorolac Tromethamine 30 mg 02/20/24 13:37 02/20/24 13:41 Ketorolac 30mg/Ml Vial IM 02/20/24 13:38 30 mg ONCE ONE Administration Lidocaine 1 each 02/20/24 13:37 02/20/24 13:41 Lidocaine 5% Transdermal Patch TP 02/20/24 13:38 1 each ONCE ONE Administration ORDERS Category Date Time Status XR knee LT 3V Stat Exams 02/20/24 13:43 Completed Cytology Routine Lab 02/20/24 18:52 Ordered [facility] Syn Cell Count w. Crystals Stat Lab 02/20/24 18:51 Ordered Body Fluid Cult & Gram Stain Stat Micro 02/20/24 18:51 Ordered Medical Decision Narrative: In summary, this patient is a 23-year-old female presenting to the Emergency Department for evaluation of worsening chronic atraumatic left knee effusion. Differential diagnoses considered include but are not limited to inflammatory arthropathy, septic arthritis, gouty arthritis, cartilaginous injury. Ruling out the most morbid conditions drove assessment. I reviewed patient's past medical records and noted previous orthopedics evaluations, previous joint aspiration, and other details listed in HPI. On exam, the patient is lying in bed in no acute distress. She has a very large left knee effusion with no erythema, warmth, or wounds. She has limited range of motion of the left lower extremity secondary to pain and swelling of the left knee but otherwise she is neurovascularly intact. She has already had a joint aspiration which was negative for infection and she also did not have any crystals. Lyme titer negative. She is awaiting outpatient referral for rheumatology. Outpatient MRI has been denied by her insurance. She is here today for gradual worsening of pain and swelling. I had an interactive discussion with Dr. Alfaro with orthopedics who advised that she would likely benefit from therapeutic aspiration to relieve some of the pressure in her knee. He also advised that she needs to see rheumatology right away to get down to the bottom of this. I had a discussion with the patient regarding risk versus benefit of joint aspiration, and she states that her pain actually worsened after her initial joint aspiration, so she does not think that a therapeutic aspiration would be helpful to her at this time. After shared decision-making with the patient as well as her orthopedist, I will plan to call [facility] for consultation for further recommendations given this is significantly impacting her daily life. Workup included x-rays of the left knee. Patient was given oral Tylenol, IM Toradol, and topical Lidoderm patch for symptomatic improvement of pain. I independently interpreted x-ray prior to the radiologist read and noted joint effusion without acute bony abnormality. Please see their read for final interpretation. I called [facility] to see if we could expedite eval, awaiting callback at signout to oncoming provider Dr. Ramos. <Brannon Ramos MD - Last Filed: 02/20/24 18:58> Vital Signs: 02/20/24 13:08 02/20/24 13:31 02/20/24 14:31 Temperature 98 F Temperature Source Oral Pulse Rate 102 H 95 H Pulse Rate [Left] 92 H Respiratory Rate 16 Blood Pressure 82/54 L 109/66 L Blood Pressure [Right Arm] 151/77 H Blood Pressure Mean 63 73 Blood Pressure Mean [Right Arm] 101 Blood Pressure Source [Right Arm] Automatic Cuff Blood Pressure Position [Right Arm] Sitting 02 Sat by Pulse Oximetry 98 98 98 Oxygen Delivery Method Room Air Room Air Room Air Orders (Tests/Meds): ED MEDICATIONS Discontinued Medications Generic Name Dose Route Start Last Admin Trade Name Bossman PRN Reason Stop Dose Admin Acetaminophen 1,000 mg 02/20/24 13:24 02/20/24 13:41 Acetaminophen 500mg Tab PO 02/20/24 13:25 1,000 mg ONCE ONE Administration Ibuprofen 800 mg 02/20/24 13:24 Ibuprofen 400 Mg Tablet PO 02/20/24 13:25 ONCE ONE Ketorolac Tromethamine 30 mg 02/20/24 13:37 02/20/24 13:41 Ketorolac 30mg/Ml Vial IM 02/20/24 13:38 30 mg ONCE ONE Administration Lidocaine 1 each 02/20/24 13:37 02/20/24 13:41 Lidocaine 5% Transdermal Patch TP 02/20/24 13:38 1 each ONCE ONE Administration ORDERS Category Date Time Status XR knee LT 3V Stat Exams 02/20/24 13:43 Completed Cytology Routine Lab 02/20/24 18:52 Ordered [facility] Syn Cell Count w. Crystals Stat Lab 02/20/24 18:51 Ordered Body Fluid Cult & Gram Stain Stat Micro 02/20/24 18:51 Ordered Medical Decision Narrative: In summary, this patient is a 23-year-old female presenting to the Emergency Department for evaluation of worsening chronic atraumatic left knee effusion. Differential diagnoses considered include but are not limited to inflammatory arthropathy, septic arthritis, gouty arthritis, cartilaginous injury. Ruling out the most morbid conditions drove assessment. I reviewed patient's past medical records and noted previous orthopedics evaluations, previous joint aspiration, and other details listed in HPI. On exam, the patient is lying in bed in no acute distress. She has a very large left knee effusion with no erythema, warmth, or wounds. She has limited range of motion of the left lower extremity secondary to pain and swelling of the left knee but otherwise she is neurovascularly intact. She has already had a joint aspiration which was negative for infection and she also did not have any crystals. Lyme titer negative. She is awaiting outpatient referral for rheumatology. Outpatient MRI has been denied by her insurance. She is here today for gradual worsening of pain and swelling. I had an interactive discussion with Dr. Alfaro with orthopedics who advised that she would likely benefit from therapeutic aspiration to relieve some of the pressure in her knee. He also advised that she needs to see rheumatology right away to get down to the bottom of this. I had a discussion with the patient regarding risk versus benefit of joint aspiration, and she states that her pain actually worsened after her initial joint aspiration, so she does not think that a therapeutic aspiration would be helpful to her at this time. After shared decision-making with the patient as well as her orthopedist, I will plan to call for consultation for further recommendations given this is significantly impacting her daily life. Workup included x-rays of the left knee. Patient was given oral Tylenol, IM Toradol, and topical Lidoderm patch for symptomatic improvement of pain. I independently interpreted x-ray prior to the radiologist read and noted joint effusion without acute bony abnormality. Please see their read for final interpretation. I called to see if we could expedite eval, awaiting callback at signout to oncoming provider Dr. Ramos. This is Dr. Ramos I took over from Dr. Jordan at around 4 PM. I personally valuated the patient and patient has a large left joint effusion and fixed flexed position no significant erythema warmth fevers chills or anything to suggest that this is a septic joint. I personally reviewed the patient's recent lab work and inflammatory markers are mildly elevated. She had a negative JESSICA. I discussed the case further with Dr. Alfaro and given the fact that her insurance has refused this and that she needs an MRI to rule out any structural pathology we felt that an MRI was needed emergently. An MRI without contrast has been ordered we will get that done before she leaves the emergency department. Subsequently I will perform an arthrocentesis both from a diagnostic and therapeutic standpoint. Cell count cultures will be sent but I would not wait on those results before discharging the patient. I spoke with orthopedic surgery as well as rheumatology at [facility] Dr. Leal with Rheum's who I spoke to and they will call and make an appointment with this patient next week. The patient is agreeable to this plan and I will reassess after I do the arthrocentesis. Reassessment 6:57 PM arthrocentesis performed which yielded 30 to 40 cc of turbid fluid cell count Gram stain cultures crystal analysis and cytology studies have been sent. I called [facility] as stated above they will be calling her for follow-up appointment. She did have improved range of motion she was that she can care for herself at home. No further intervention needed at the moment. MRI was performed which I personally turbid also reviewed radiology images which did not yield any structural abnormalities nor any alternative pathology per radiology. She has been discharged in stable condition with advised to keep a close follow-up appointment with otology return with any significant worsening of her symptoms. Lastly images have been power shared and a disc with images have been printed for her to take to her appointment with . Procedures <Brannon Ramos MD - Last Filed: 02/20/24 18:58> Joint Aspiration/Injection Joint Asp./Inject. 1: Time Out Performed: Yes Side of body: left Joint Aspirated: knee Ultrasound Guidance: No Skin Prep: Chlorhexidine Local Anesthetic: lidocaine 1% and with epi Amount of anesthesia used (mL): 6 Needle Size Used: 18G Fluid Obtained: turbid Total fluid obtained (mL): 40 Patient Tolerated Procedure: well Complications: none Critical Care <Dinorah Jordan, DO - Last Filed: 02/20/24 15:24> Critical Care Time Critical Care Time: No
--- NOTE | 2024-02-20 14:16 | PC.NURSE ---
[facility]
--- NOTE | 2024-02-20 14:19 | PC.NURSE ---
Called [facility] per to consult with ortho. stated that they would give us a call back.
[2024-02-20 14:31] VITALS: BP 109/66; PULSE 95; O2SAT 98
--- NOTE | 2024-02-20 14:42 | PC.NURSE ---
Rounded on patient, patient voiced that she didn't need anything at this moment.
--- NOTE | 2024-02-20 15:37 | PC.NURSE ---
Called [facility] per Dr. Ramos to consult with rheumatology, [facility] said they would give us a call back.
--- NOTE | 2024-02-20 16:12 | MR_ITS ---
PROCEDURE INFORMATION: Exam: MR Left Lower Extremity Joint Without Contrast, Knee Exam date and time: 02/20/2024 5:10 PM Age: 23 years old Clinical indication: Pain; Knee; Left; Additional info: Large non traumatic knee effusion TECHNIQUE: Imaging protocol: Magnetic resonance imaging of the left lower extremity joint without contrast. Exam focused on the knee. COMPARISON: 1. CR XR KNEE LT 3V 02/20/2024 1:54 PM 2. CR XR KNEE LT 3V 11/25/2023 4:22 PM FINDINGS: Bones/joints: There is a large joint effusion with associated synovitis. Medial meniscus: Unremarkable. No tear. Lateral meniscus: Unremarkable. No tear. Anterior cruciate ligament: Unremarkable. No tear. Posterior cruciate ligament: Unremarkable. No tear. Medial capsule and supporting structures: Unremarkable. No tear. Lateral capsule and supporting structures: Unremarkable. No tear. Extensor mechanism of knee: Unremarkable. No tear. Soft tissues: Unremarkable. IMPRESSION: There is a large joint effusion with associated synovitis. No evidence for internal derangement.
--- NOTE | 2024-02-20 16:25 | PC.NURSE ---
MRI is able to work in the pt. Care Management aware and gave the ok to proceed with it.
[2024-02-20 18:57] VITALS: BP 98/64; PULSE 71; RESP 18; TEMP 36.4; O2SAT 99
[2024-02-21 00:13] LABS: UK Syn. Total Nucleated Cell 1508 uL; UK Synovial Appearance CLOUDY; UK Synovial Red Blood Cell 18 uL; UK Synovial Volume 4 CC
[2024-02-21 00:16] LABS: UK Synovial Color YELLOW
[2024-02-21 06:02] LABS: UK Synovial Basophil % 0 %; UK Synovial Eosinophil % 0 %; UK Synovial Lymphocytes % 28 %; UK Synovial Neutrophil % 17 %
[2024-02-21 06:03] LABS: UK Synovial Lining/Mesothelial 0 %; UK Synovial Mono/Macro % 55 %; UK Synovial Neutrophil Absolut 256 u/L
[2024-02-21 06:04] LABS: UK Synovial Lymphocyte Absolut 422 u/L; UK Synovial Mono/Macro Absoult 829 u/L
== END 2024-02-20 19:10 | disposition home or self-care (01) ==
PROVIDERS: Student in an Organized Health Care Education/Training Program; Emergency Provider Emergency Medicine; PCP Nurse Practitioner Family
DX: M25.462 Effusion, left knee (principal)
CPT/HCPCS: 73562; 73721; 87070; 87205; 96372; 99284; J1885